=== PATIENT | female | born 1990 | race African-American/Black ===

== ENCOUNTER 2016-12-25 19:26 | Emergency (ER) | payer OTHER ==
[~2016-12-25] VITALS: Ht 167.6 cm; Wt 88.6 kg
[~2016-12-25 19:26] MED LIST: AMOXICILLIN875 MG PO; DIFLUCAN PO; MOBIC7.5 MG/5 M PO; NORCO1 TAB 10/3; NORCO1 TAB 10/3 PO
== END 2016-12-25 20:19 | disposition home or self-care (01) ==
LOC: SED 19:26
DX: R59.0 Localized enlarged lymph nodes (principal)
CPT/HCPCS: 99283